=== PATIENT | female | born 1955 | race American Indian/Alaskan Native ===

== ENCOUNTER 2017-09-01 19:41 | Emergency (ER) | payer OTHER ==
--- NOTE | 2017-09-01 19:46 | PDOC ---
History of Present Illness - General History Source: Patient, Family Exam Limitations: No Limitations - History of Present Illness Initial Comments: 09/01/17 19:48 The patient is a 62 year old female, with a significant past medical history of seizures and hypothyroidism, who presents to the emergency room complaining of a fish bone stuck in the throat for approx. one hour. The patient reports she was eating dinner and experienced a sensation of a fish bone from her meal stuck in her throat. The patient reports her friend present who is a Doctor attempted a couple of online remedies, however, the feeling was unchanged. The patient reports vomiting 1x prior to arrival. The patient denies chest pain or shortness of breath. She denies headache, dizziness or loss of consciousness. Allergies: NKA <Eric Owen - Last Filed: 09/01/17 21:07> <Naty Malik - Last Filed: 09/01/17 21:10> - General Chief Complaint: Foreign Body (FB) Stated Complaint: FISHBONE STUCK IN THROAT Time Seen by Provider: 09/01/17 19:42 Past History <Eric Owen - Last Filed: 09/01/17 21:07> - Past Medical History Seizures: Yes Thyroid Disease: Yes - Suicide/Smoking/Psychosocial Hx Smoking Status: No Smoking History: Never smoked Have you smoked in the past 12 months: No Number of Cigarettes Smoked Daily: 0 <Naty Malik - Last Filed: 09/01/17 21:10> - Past Medical History Allergies/Adverse Reactions: Allergies Allergy/AdvReac Type Severity Reaction Status Date / Time No Known Allergies Allergy Verified 09/01/17 19:42 Home Medications: Ambulatory Orders Alendronate Na [Fosamax (Weekly)] 70 mg PO Q7D 04/12/13 Lamotrigine [Lamictal] 200 mg PO BID 04/12/13 Levothyroxine [Synthroid] 88 mcg PO DAILY 04/12/13 Review of Systems - Review of Systems Comments:: 09/01/17 20:03 GENERAL/CONSTITUTIONAL: No fever or chills. No weakness. HEAD, EYES, EARS, NOSE AND THROAT: +Sore throat. No change in vision. No ear pain or discharge. CARDIOVASCULAR: No chest pain or shortness of breath. RESPIRATORY: No cough, wheezing, or hemoptysis. GASTROINTESTINAL: +Vomiting. No diarrhea or constipation. GENITOURINARY: No dysuria, frequency, or change in urination. MUSCULOSKELETAL: No joint or muscle swelling or pain. No neck or back pain. SKIN: No rash NEUROLOGIC: No headache, vertigo, loss of consciousness, or change in strength/ sensation. ENDOCRINE: No increased thirst. No abnormal weight change. HEMATOLOGIC/LYMPHATIC: No anemia, easy bleeding, or history of blood clots. ALLERGIC/IMMUNOLOGIC: No hives or skin allergy. <Eric Owen - Last Filed: 09/01/17 21:07> *Physical Exam - Vital Signs Last Vital Signs Temp Pulse Resp BP Pulse Ox 98.4 F 80 18 169/84 100 09/01/17 19:42 09/01/17 19:42 09/01/17 19:42 09/01/17 19:42 09/01/17 19:42 - Physical Exam Comments: 09/01/17 20:05 GENERAL: Awake, alert, and fully oriented, appears uncomfortable HEAD: No signs of trauma EYES: PERRLA, EOMI, sclera anicteric, conjunctiva clear ENT: +Small scratch on right side of oropharynx. Auricles normal inspection, hearing grossly normal, nares patent. Moist mucosa NECK: Normal ROM, supple, no lymphadenopathy, JVD, or masses. No anterior neck tenderness. LUNGS: Coarse breath sounds bilaterally. HEART: Regular rate and rhythm, normal S1 and S2, no murmurs, rubs or gallops ABDOMEN: Soft, nontender, normoactive bowel sounds. No guarding, no rebound. No masses EXTREMITIES: Normal range of motion, no edema. No clubbing or cyanosis. No cords, erythema, or tenderness NEUROLOGICAL: Cranial nerves II through XII grossly intact. Normal speech, normal gait SKIN: Warm, Dry, normal turgor, no rashes or lesions noted. <Eric Owen - Last Filed: 09/01/17 21:07> - Vital Signs Last Vital Signs Temp Pulse Resp BP Pulse Ox 98.4 F 80 18 169/84 100 09/01/17 19:42 09/01/17 19:42 09/01/17 19:42 09/01/17 19:42 09/01/17 19:42 <Naty Malik - Last Filed: 09/01/17 21:10> ED Treatment Course - RADIOLOGY Radiograph Interpretation: 09/01/17 21:07 EXAM: XR NECK HISTORY:Assess for foreign body. COMPARISON: None. FINDINGS:This is a preliminary report. The airway is midline and patent. The epiglottis and aryepiglottic folds are unremarkable. No discrete foreign body is identified. The remainder the surrounding soft tissues of the neck are unremarkable. Osteodegenerative changes are noted involving the lower cervical spine, with anterior, lateral, and posterior spondylitic ridging. IMPRESSION: No evidence of foreign body. THIS DOCUMENT HAS BEEN ELECTRONICALLY SIGNED Lyndon Lopez MD <Eric Owen - Last Filed: 09/01/17 21:07> Medical Decision Making - Medical Decision Making 09/01/17 21:10 Patient Name: LINDA MONTERO THIS IS A PRELIMINARY REPORT FROM [facility] RADIOLOGY TECHNICIAN DATE OF SERVICE: 2017-09-01 19:55:43 IMAGES: 2 EXAM: XR NECK HISTORY:Assess for foreign body. COMPARISON: None. FINDINGS:This is a preliminary report. The airway is midline and patent. The epiglottis and aryepiglottic folds are unremarkable. No discrete foreign body is identified. The remainder the surrounding soft tissues of the neck are unremarkable. Osteodegenerative changes are noted involving the lower cervical spine, with anterior, lateral, and posterior spondylitic ridging. IMPRESSION: No evidence of foreign body. THIS DOCUMENT HAS BEEN ELECTRONICALLY SIGNED <Naty Malik - Last Filed: 09/01/17 21:10> *DC/Admit/Observation/Transfer - Attestations Scribe Attestion: 09/01/17 20:07 Documentation prepared by Eric Owen, acting as biomedical manager for Naty Malik MD. <Eric Owen - Last Filed: 09/01/17 21:07> - Discharge Dispostion Admit: No <Naty Malik - Last Filed: 09/01/17 21:10> Diagnosis at time of Disposition: Foreign body sensation in throat - Discharge Dispostion Disposition: HOME Condition at time of disposition: Good - Patient Instructions Printed Discharge Instructions: DI for Foreign Body, Swallowed-Adult
[2017-09-01 20:30] VITALS: BP 169/84; PULSE 80; TEMP 98.4; BMI 19.6
--- NOTE | 2017-09-02 09:07 | PDOC ---
*Physical Exam - Vital Signs Last Vital Signs Temp Pulse Resp BP Pulse Ox 98.4 F 80 18 169/84 100 09/01/17 19:42 09/01/17 19:42 09/01/17 19:42 09/01/17 19:42 09/01/17 19:42 Medical Decision Making - Medical Decision Making 09/02/17 09:01 In house radiology feels the epiglotitis may be swollen on the x-ray. 09/02/17 09:07 Tried calling the patient but was told the number she gave us belonged to someone else. I then tried calling her next of kin, who told me she was doing much better. 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 She said she will keep a close eye on her and be sure to get her medical attention if any new or concerning symptoms arise. *DC/Admit/Observation/Transfer Diagnosis at time of Disposition: Foreign body sensation in throat - Discharge Dispostion Disposition: HOME Condition at time of disposition: Good - Referrals - Patient Instructions Printed Discharge Instructions: DI for Foreign Body, Swallowed-Adult - Post Discharge Activity
== END 2017-09-01 21:17 | disposition home or self-care (01) ==
LOC: FER 19:41
DX: R09.89 Other specified symptoms and signs involving the circulatory and respiratory systems (principal)
CPT/HCPCS: 70360-TC; 99281-25

== ENCOUNTER 2019-03-20 09:11 | Emergency (ER) | payer OTHER ==
[2019-03-20 09:31] VITALS: PULSE 67; TEMP 98.3; BMI 19.5
--- NOTE | 2019-03-20 09:43 | PDOC ---
History of Present Illness - General Chief Complaint: Injury Stated Complaint: FELL, STRUCK HEAD Time Seen by Provider: 03/20/19 09:28 - History of Present Illness Initial Comments: 03/20/19 10:52 64 years old past medical history significant for hypothyroidism, seizure disorder presents emergency department status post mechanical fall yesterday in the shower hit the left side of her head there was no prodrome simply slipped in the shower. No loss of consciousness no weakness numbness no vomiting no severe headache complaining of very mild pain to the left side of her head mild repaired mild hip pain was able to walk ambulate no significant tenderness in her ribs. She was concerned mostly about her head injury. Symptoms are mild persistent constant with no exacerbating or alleviating factors. Past History - Past Medical History Allergies/Adverse Reactions: Allergies Allergy/AdvReac Type Severity Reaction Status Date / Time No Known Allergies Allergy Verified 03/20/19 09:24 Home Medications: Ambulatory Orders Alendronate Na [Fosamax (Weekly)] 70 mg PO Q7D 04/12/13 Lamotrigine [Lamictal] 200 mg PO BID 04/12/13 Levothyroxine [Synthroid -] 75 mcg PO DAILY 03/20/19 Multivit-Min/Iron/Folic/Lutein [Centrum Silver Women Tablet] 1 each PO DAILY COPD: No Seizures: Yes Thyroid Disease: Yes - Suicide/Smoking/Psychosocial Hx Smoking Status: No Smoking History: Never smoked Have you smoked in the past 12 months: No Number of Cigarettes Smoked Daily: 0 Hx Alcohol Use: No Drug/Substance Use Hx: No Review of Systems - Review of Systems Comments:: 03/20/19 10:52 ROS: A complete review of 10 out of 10 review of systems is taken and is negative apart from what is previously mentioned below and in the HPI. *Physical Exam - Vital Signs Last Vital Signs Temp Pulse Resp BP Pulse Ox 98.3 F 67 16 166/88 100 03/20/19 09:20 03/20/19 09:20 03/20/19 09:20 03/20/19 09:20 03/20/19 09:20 - Physical Exam Comments: 03/20/19 10:53 Vitals: Triage Vital signs reviewed General Appearance: no acute distress, well nourished well developed, Head: Atraumatic, Eyes: Pupils equal reactive round, extraocular movement intact Neck: Supple;No Nucal rigidity Chest Wall: Nontender Cardiac: Regular rate and rhythym, no murmurs, no rubs, no gallops, Lungs: Clear to auscultation bilateral, good air movement bilaterally, Abdomen: Soft, non distended, normal bowel sounds, non tender to palpation Extremities: Full range of motion to all extremities, no cyanosis, clubbing, or edema Skin: Warm and dry, no rashes or lesions, no rash, no petechiae Neuro: AOX3; Cranial Nerves 2-12 grossly intact, Strength intact to all extremities, Sensation intact to all extremities,gait normal Psych: normal mood, normal affect Medical Decision Making - Medical Decision Making Well-appearing no apparent distress. Patient requesting CAT scan low suspicion for acute intracranial injury Risks and benefits of CT discussed with patient she would prefer to have imaging performed Reevaluation normal neurologic examination no acute findings on CT Find his, need follow-up and strict return instructions discussed with patient. *DC/Admit/Observation/Transfer Diagnosis at time of Disposition: Minor head injury Qualifiers: Encounter type: initial encounter Qualified Code(s): S09.90XA - Unspecified injury of head, initial encounter - Discharge Dispostion Condition at time of disposition: Good Decision to Admit order: No - Referrals Referrals: Sultana Irvin [Primary Care Provider] - - Patient Instructions Printed Discharge Instructions: DI for Closed Head Injury Additional Instructions: Return to ED for any severe headache nausea vomiting weakness numbness or for any concerns otherwise follow-up with your primary care provider on Saturday. - Post Discharge Activity
[2019-03-20 11:04] VITALS: BP 152/82
== END 2019-03-20 11:27 | disposition home or self-care (01) ==
LOC: FER 09:11
DX: S09.8XXA Other specified injuries of head, initial encounter (principal); W18.2XXA Fall in (into) shower or empty bathtub, initial encounter; Y93.E1 Activity, personal bathing and showering; Y92.031 Bathroom in apartment as the place of occurrence of the external cause; Y99.8 Other external cause status; E03.9 Hypothyroidism, unspecified; G40.909 Epilepsy, unspecified, not intractable, without status epilepticus
CPT/HCPCS: 70450-TC; 99282-25